=== PATIENT | male | born 1955 | race Caucasian/White ===

== ENCOUNTER 2016-11-10 18:50 | Emergency (ER) | payer OTHER ==
[2016-11-10 19:45] LABS: ABSOLUTE NEUTROPHIL COUNT 4.6 K/mm3 (1.8-7.7); BASO # 0.1 K/mm3 (0.0-0.2); BASO % 0.7 % (0.2-1.0); EOS # 0.3 (0.0-0.5); EOS % 4.6 % (0.9-2.9); HEMATOCRIT 44.7 % (32.0-52.0); HEMOGLOBIN 15.1 gm/l (14.0-18.0); IMM NEUT% 0.3 % (0-1); LYMPH # 1.3 (1.0-4.8); LYMPH % 18.7 % (15-45); MEAN CELL VOLUME 89.4 fl (80.0-94.0); MEAN CORPUSCULAR HEMOGLOBIN 30.2 pg (27.0-31.0); MEAN CORPUSCULAR HGB CONC 33.8 g/dl (33.0-37.0); MEAN PLATELET VOLUME 8.8 fl (7.4-10.4); MONO # 0.5 (0.0-0.8); MONO % 6.9 % (4-12); NEUT % 68.8 % (43-75); PLATELET COUNT 273 K/mm3 (130-400); RED CELL DISTRIBUTION WIDTH 12.3 % (11.5-14.5)
[2016-11-10 19:53] LABS: ALB/GLOB RATIO 1.1 (>1.0); ALBUMIN 3.8 gm/dL (3.5-5.7); BLOOD UREA NITROGEN 20 mg/dL (7-25); BUN/CREATININE RATIO 15 (6-20); CALCIUM 9.1 mg/dL (8.6-10.3); GLOMERULAR FILTRATION RATE 56 mL/min (60-85)
[2016-11-10 19:56] LABS: TROPONIN I 0.01 ng/ml (0.0-0.06)
[2016-11-10 20:01] LABS: CKMB ISOENZYME 0.9 ng/ml (0.6-6.3)
[2016-11-10 20:09] LABS: ALT/SGPT < 5 U/L (7-52)
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
== END 2016-11-10 23:38 | disposition home or self-care (01) ==
LOC: ED 18:50
DX: R56.9 Unspecified convulsions (principal); I10 Essential (primary) hypertension; G20 Parkinson's disease; Z79.899 Other long term (current) drug therapy

== ENCOUNTER 2016-11-15 09:49 | Emergency (ER) | payer OTHER ==
[2016-11-15] MEDS ORDERED: SODIUM CHLORIDE 0.9% 1,000 ML ONE (10:50)
[2016-11-15 11:02] LABS: ABSOLUTE NEUTROPHIL COUNT 6.5 K/mm3 (1.8-7.7); BASO % 0.5 % (0.2-1.0); EOS # 0.2 (0.0-0.5); EOS % 2.7 % (0.9-2.9); HEMATOCRIT 40.9 % (32.0-52.0); HEMOGLOBIN 14.1 gm/l (14.0-18.0); IMM NEUT% 0.4 % (0-1); LYMPH # 0.9 (1.0-4.8); LYMPH % 11.2 % (15-45); MEAN CELL VOLUME 88.3 fl (80.0-94.0); MEAN CORPUSCULAR HEMOGLOBIN 30.5 pg (27.0-31.0); MEAN CORPUSCULAR HGB CONC 34.5 g/dl (33.0-37.0); MEAN PLATELET VOLUME 8.7 fl (7.4-10.4); MONO # 0.4 (0.0-0.8); MONO % 4.6 % (4-12); NEUT % 80.6 % (43-75); PLATELET COUNT 267 K/mm3 (130-400); RED CELL DISTRIBUTION WIDTH 12.3 % (11.5-14.5)
--- NOTE | 2016-11-15 11:04 | RAD ---
Exam: Portable chest COMPARISON: 09/09/2016, 09/01/2016, 05/31/2012 INDICATION: Recent cough, seizure today. Findings: A semierect AP portable view of the chest demonstrates low lung volumes. This precludes evaluation of the lung bases. Cardiomediastinal silhouette is stable. Minor scarring is again noted on the left. Right lung is clear. No pleural effusion. Bones of the chest wall appear intact. IMPRESSION: No acute pulmonary process.
[2016-11-15 11:26] LABS: TROPONIN I < 0.01 ng/ml (0.0-0.06)
[2016-11-15 11:27] LABS: ALBUMIN 3.6 gm/dL (3.5-5.7); BLOOD UREA NITROGEN 20 mg/dL (7-25); BUN/CREATININE RATIO 17 (6-20); GLOMERULAR FILTRATION RATE 61 mL/min (60-85)
[2016-11-15 11:28] LABS: ALT/SGPT < 5 U/L (7-52)
[2016-11-15 11:30] LABS: CKMB ISOENZYME 0.8 ng/ml (0.6-6.3)
[2016-11-15] MEDS ORDERED: FOSPHENYTOIN SODIUM PE IV ONE (12:30)
[2016-11-15] MEDS ORDERED: SODIUM CHLORIDE 0.9% IV ONE (12:30)
== END 2016-11-15 16:54 | disposition home or self-care (01) ==
LOC: ED 09:49
DX: G40.909 Epilepsy, unspecified, not intractable, without status epilepticus (principal); E66.9 Obesity, unspecified; I10 Essential (primary) hypertension; G20 Parkinson's disease; Z79.899 Other long term (current) drug therapy
CPT/HCPCS: 85025; 82553; 80053; 84484; 71010; 99284 ×2; 96361 ×3; 96365; J7030; J7050